=== PATIENT | female | born 1980 | race Caucasian/White ===

== ENCOUNTER 2022-05-21 11:17 | Emergency (ER) | payer MEDICARE, OTHER ==
[~2022-05-21] VITALS: Ht 170.2 cm; Wt 116.0 kg
[2022-05-21 11:52] LABS: BASOPHIL 0.6 % (0-2); EOSINOPHIL 2.1 % (0-5); LYMPHOCYTE 23.7 % (15-48); MCH 30.5 pg (25.0-31.0); MCHC 32.4 g/dL (32.0-36.0); MCV 94.2 fL (78.0-100.0); MONOCYTE 7.6 % (0-12); MPV 8.8 fL (6.0-9.5); NEUTROPHIL 65.6 % (41-80); NRBC 0; PLT 363 K/uL (150-400); RBC 3.61 M/uL (4.20-5.40); RDW 14.6 % (11.5-14.0); WBC 8.1 K/uL (4.0-10.5)
[2022-05-21 12:04] LABS: ALBUMIN 3.3 g/dL (3.4-5.0); BILIRUBIN - TOTAL 0.1 mg/dL (0.2-1.0); CREATININE 1.21 mg/dL (0.51-0.95); GLOBULIN (CALCULATION) 4.2 g/dL; INR 0.9 (0.9-1.2); PROTHROMBIN TIME 11.9 SECONDS (11.9-13.9); PTT 27.8 SECONDS (24.9-34.6); TOTAL PROTEIN 7.5 g/dL (6.4-8.2)
== END 2022-05-21 15:10 | disposition other institution (70) ==
LOC: FER 11:17
PROVIDERS: Emergency Medicine
DX: I21.4 Non-ST elevation (NSTEMI) myocardial infarction (principal); F17.200 Nicotine dependence, unspecified, uncomplicated; Z28.310 Unvaccinated for COVID-19
CPT/HCPCS: 36415; 71045; 80053; 83880; 84484; 85025; 85610; 85730; 93005; J1644; J7030; J7060